=== PATIENT | male | born 1985 | race African-American/Black ===

== ENCOUNTER 2016-09-27 09:00 | Inpatient (IN) | payer MEDICAID ==
[~2016-09-27] VITALS: Ht 180.3 cm; Wt 80.7 kg
--- NOTE | ~2016-09-27 | PN ---
Unit #: [id number] #: [id number] Patient: CALLI ELDRIDGE [id number] [facility] [address] [place] [address] [id number] MR#: [id number] NAME: CALLI ELDRIDGE ROOM: P201 Age: 31 Sex: M Admission Date: 09/27/2016 : 1985 Attending Physician: Bryn Bhatia M.D. Admitting Physician: Bryn Bhatia M.D. Primary Care Physician: Primary Care Physician Tamra GEE PROGRESS NOTES DATE 09/29/2016 DISCUSSION Mr. Obando is a 31-year-old male seen on 09/29/2016. Patient interviewed. Chart reviewed. Obtained information from nursing staff. Patient was compliant, cooperative. Mood sad, dysphoric, flat affect, guarded, withdrawn. Patient denied any side effects from medication. Complete review of system unremarkable. MENTAL STATUS EXAMINATION General appearance, patient dressed casually. Attention span, concentration fair. Oriented in time, place and person. Mood and affect sad, dysphoric. Speech monotone. Thought process concrete. Patient denied any thoughts of harming self or others. Recent and remote memory poor. Insight and judgement poor. DIAGNOSES 1. Major depressive disorder, recurrent, severe. 2. Opiate use disorder, severe. ASSESSMENT/PLAN Advised to continue with current medication and therapeutic protocol. If needed, consider further adjustment of medication. Dictated by... Loretta Ca/pollo TD: 09/29/2016 21:02 JOB #: [id number] Unit #: [id number] #: [id number] Patient: CALLI ELDRIDGE JAYAAMIR PROGRESS NOTES Page 1 of 1 X Bryn Bhatia MD PROGRESS NOTE
--- NOTE | ~2016-09-27 | HP ---
Unit #: [id number] #: [id number] Patient: TOPHER ELDRIDGE [id number] [facility] [address] [place] [address] [id number] MR#: [id number] NAME: TOPHER ELDRIDGE ROOM: P201 Age: 31 Sex: M Admission Date: 09/27/2016 : 1985 Attending Physician: Bryn Bhatia M.D. Admitting Physician: Bryn Bhatia M.D. Primary Care Physician: Primary Care Physician No HISTORY AND PHYSICAL HISTORY OF PRESENT ILLNESS Topher is a 31 year old admitted to [address] [place] [address] because of his poly illicit substance abuse which includes methamphetamine and heroin. PAST MEDICAL HISTORY 1. Long history of illicit substance abuse to include meth and heroin. 2. History of withdrawal seizures. PAST SURGICAL HISTORY Umbilical hernia repair. ALLERGIES No known drug allergies. SOCIAL HISTORY Smokes 1 1/2 pack per day. Drink s alcohol on occasion. Admits to a history of illicit substance abuse to include methamphetamine and heroin. FAMILY HISTORY Medically noncontributory. REVIEW OF SYSTEMS CONSTITUTIONAL: No fever or chills. HEENT: Denies any sore throat, ear pain or runny nose. CARDIOVASCULAR: Denies chest pain, irregular heart rhythm or palpitations. CHEST: Denies shortness of breath or cough. No hemoptysis. GASTROINTESTINAL: Denies nausea, vomiting, diarrhea or chronic constipation. ENDOCRINE: Denies history of increased thirst or urination. No recent significant weight loss or gain. GENITOURINARY: Denies dysuria, frequency, or hematuria. SKIN: He does report multiple abrasions especially to his lower legs and hands after trying to jump a chain link fence. HEMATOLOGIC: Denies history of increased bleeding or bruising. MUSCULOSKELETAL: Denies any hot, swollen joints. No generalized muscle pain. NEUROLOGIC: Denies problems with vision or speech. No frequent, severe headaches. No numbness, tingling or weakness in any extremities. Denies loss of bladder or bowel control. CURRENT MEDICATIONS Detox protocol. Unit #: [id number] #: [id number] Patient: TOPHER ELDRIDGE PHYSICAL EXAMINATION GENERAL: Alert, well-nourished, in no apparent distress. VITAL SIGNS: Blood pressure 130/76, heart rate 64, respirations 16, temperature 98.6. WEIGHT: 178. HEIGHT: 5 foot 11 inches. SKIN: Warm and dry without rash. He has multiple abrasions along both of his lower legs and the palms of his hands. There is no increased redness, swelling, heat or pus noted. HEENT: Normocephalic. TMs not viewed. Oral and nasal passages clear. Conjunctivae clear. Pupils equal, round and reactive to light and accommodation. Extraocular movements intact. NECK: Supple without lymphadenopathy or thyromegaly. HEART: Regular rate and rhythm without murmur. LUNGS: Clear. ABDOMEN: Soft, nontender. : Not done. EXTREMITIES: No evidence of cyanosis, clubbing or edema. Moves all extremities without focal deficit. NEUROLOGICAL: Grossly within normal limits. Cranial Nerves: II: Visual combs are intact. III, IV AND : Extraocular movements are intact. Pupils are equal, round and reactive to light. V: Facial sensation is grossly normal. VII: Facial movements and expression are normal. VIII: Auditory acuity grossly intact. IX, X: Uvula is midline. Phonation is normal. XI: Patient shrugs shoulders and turns head normally. XII: Tongue protrudes in the midline. Sensory and Motor Function: Sensory and motor sensation is grossly normal. Motor: moves all extremities well. Coordination: Gait is normal. Deep Tendon Reflexes: Intact. IMPRESSION 1. Psychiatric admission. 2. Multiple abrasions sustained prior to this admission. RECOMMENDATIONS PSYCHIATRIC: Per psychiatrist. MEDICAL: 1. I see no contraindications to participating in facility's activities. 2. Keep the abrasions clean with soap and water. Apply bacitracin ointment and cover with a clean dressing q day. MEDICAL PROGNOSIS Good. MEDICAL CONDITION Stable. Dictated by... Lina Woo P.A.-C. for Hesham Arambula M.D. Unit #: [id number] #: [id number] Patient: TOPHER ELDRIDGE TRACIE/neva TD: 09/28/2016 01:42 JOB #: [id number] HISTORY AND PHYSICAL Page 1 of 1 X Lina Woo HISTORY AND PHYSICAL
--- NOTE | ~2016-09-27 | DS ---
Unit #: [id number] #: [id number] Patient: CALLI ELDRIDGE [id number] [facility] [address] [place] [address] [id number] MR#: [id number] NAME: CALLI ELRDIDGE ROOM: [facility] Age: 31 Sex: M Admission Date: 09/27/2016 : 1985 Discharge Date: 10/01/2016 Attending Physician: Bryn Bhatia M.D. Primary Care Physician: Primary Care Physician No DISCHARGE SUMMARY REASON FOR ADMISSION Depression. DIAGNOSTIC STUDIES Laboratory data, urine drug screen positive for amphetamine. HOSPITAL COURSE The patient was admitted to the inpatient unit, on September 27 and discharged on 10/01/16. The patient was treated on the inpatient unit, individual therapy, medication management, chemical dependency group, and showed improvement and subsequently was discharged with the plan to followup in outpatient program. DISCHARGE DIAGNOSES PSYCHIATRIC: [place] I Major depressive disorder, recurrent, severe, F33.2. Amphetamine use disorder, severe, F15.20. Opiate use disorder, severe, F18.20. [place] II Deferred. [place] III None. [place] IV Psychosocial stressors. [place] V INSTRUCTIONS TO PATIENT The patient is to followup in outpatient clinic as well as with social media sr strategy manager. DISCHARGE MEDICATIONS Celexa 20 mg at bedtime for depression CONDITION AT DISCHARGE The patient is pleasant, cooperative, denied any psychotic symptoms or any suicidal ideation. PROGNOSIS Guarded. DIET AND ACTIVITY As tolerated. Unit #: [id number] #: [id number] Patient: CALLI ELDRIDGE Dictated by... Loretta Ca/kalani TD: 10/04/2016 06:55 JOB #: [id number] DISCHARGE SUMMARY Page 1 of 1 X Bryn Bhatia MD X DISCHARGE SUMMARY
--- NOTE | ~2016-09-27 | PN ---
Unit #: [id number] #: [id number] Patient: TOPHER ELDRIDGE [id number] [facility] [address] [place] [address] [id number] MR#: [id number] NAME: TOPHER ELDRIDGE ROOM: P201 Age: 31 Sex: M Admission Date: 09/27/2016 : 1985 Attending Physician: Bryn Bhatia M.D. Admitting Physician: Bryn Bhatia M.D. Primary Care Physician: Primary Care Physician Tamra GEE PROGRESS NOTES DATE OF SERVICE 09/28/2016 DISCUSSION Topher is a 31-year-old male. Patient interviewed, chart reviewed. Obtained information from nursing staff. Patient compliant and cooperative. Mood sad, dysphoric, flat affect, guarded, withdrawn, isolative. Complete review of systems unremarkable. MENTAL STATUS EXAMINATION General appearance, patient dressed casually. Attention span and concentration fair. Oriented to place and person. Mood and affect sad, dysphoric. Speech monotone. Thought process concrete. Patient denied any thoughts of harming self or others but still having those thoughts crossing his mind. Recent and remote memory poor. Insight and judgement poor. DIAGNOSES 1. Major depressive disorder recurrent severe. 2. Opiate use disorder severe. ASSESSMENT/PLAN Advise to continue with current medication and therapeutic protocol and start Celexa 20 mg daily. If needed consider further adjustment of medication. Dictated by... Loretta Ca/nvea TD: 09/28/2016 22:47 JOB #: [id number] Unit #: [id number] #: [id number] Patient: TOPHER ELDRIDGE PROGRESS NOTES Page 1 of 1 X Bryn Bhatia MD X PROGRESS NOTE
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
--- NOTE | ~2016-09-27 | PN ---
Unit #: [id number] #: [id number] Patient: TOPHER VILLALBA [id number] [facility] [address] [place] [address] [id number] MR#: [id number] NAME: TOPHER VILLALBA ROOM: [facility] Age: 31 Sex: M Admission Date: 09/27/2016 : 1985 Attending Physician: Bryn Bhatia M.D. Admitting Physician: Bryn Bhatia M.D. Primary Care Physician: Primary Care Physician Tamra GEE PROGRESS NOTES DATE 09/30/2016 DISCUSSION Topher Villalba is a 14-year-old male, seen on 09/30/2016. The patient interviewed, chart reviewed, and obtained information from the nursing staff. The patient was compliant and cooperative. Mood sad and dysphoric, flat affect, and guarded. The patient's vital signs, 98.2, 71, 128/79, making progress. REVIEW OF SYSTEMS Complete review of systems unremarkable. MENTAL STATUS EXAMINATION General appearance: Patient dressed casually. Attention span and concentration, fair. Oriented in time, place, and person. Mood and affect, labile. Speech, monotone. Thought process, concrete. The patient denied any thoughts of harming self or others, seclusive, isolative. Recent and remote memory, poor. Insight and judgment, poor. DIAGNOSES 1. Major depressive disorder, recurrent, severe. 2. Opiate use disorder, severe. ASSESSMENT/PLAN Advised to continue with the current medication and therapeutic protocol, and if needed consider further adjustment of medication. Dictated by... Loretta Ca/kalani TD: 10/01/2016 05:29 JOB #: [id number] Unit #: [id number] #: [id number] Patient: TOPHER VILLALBA PROGRESS NOTES Page 1 of 1 X Bryn Bhatia MD X PROGRESS NOTE
[2016-09-28 09:47] LABS: BILIRUBIN,TOTAL 0.5 mg/dL (0.2-2.0); CALCIUM SERUM 9.3 mg/dL (8.4-10.2); GLOM FILT RATE Estimated 116.5 mL/min (>60); POTASSIUM 4.2 mmol/L (3.5-5.1); PROTEIN TOTAL SERUM 6.7 g/dL (6.0-8.3)
[2016-09-28 10:05] LABS: BASOPHIL% 0.4 % (0-2.5); EOSINOPHIL# 0.5 X10e3 (0-0.7); EOSINOPHIL% 7.1 % (0.0-7.0); HEMATOCRIT 47.2 % (38.0-50.0); HEMOGLOBIN 15.2 gm/dL (13.0-16.0); LYMPHOCYTE# 1.2 X10e3 (1.0-3.5); LYMPHOCYTE% 16.7 % (17.0-45.0); MEAN CORPUSCULAR HEMOGLOBIN 28.4 PG (28-34); MEAN CORPUSCULAR HGB CONC 32.3 g/dL (30-36); MEAN PLATELET VOLUME 11.2 FL (6.5-11.5); MONOCYTE# 0.5 X10e3 (0-1.0); MONOCYTE% 6.9 % (3.0-12.0); NEUTROPHIL# 4.8 X10e3 (1.5-7.1); NEUTROPHIL% 68.9 % (40-75); PLATELET COUNT 199 X10e3 (140-420); RED BLOOD COUNT 5.36 X10e (3.90-5.60); RED CELL DISTRIBUTION WIDTH 13.9 % (11.0-15.5)
[2016-09-28 10:07] LABS: DIFF IND NO
[2016-09-30 12:50] LABS: URINE SOURCE CLEAN CATCH
[2016-09-30 13:01] LABS: URINE APPEARANCE CLOUDY; URINE BILIRUBIN NEG (NEG); URINE BLOOD NEG (NEG); URINE COLOR YELLOW; URINE GLUCOSE NEG (NEG); URINE KETONE TRACE (NEG); URINE LEUKOCYTE ESTERASE NEG (NEG); URINE NITRATE NEG (NEG); URINE PH 6.5 (5-8); URINE PROTEIN NEG (NEG); URINE SPECIFIC GRAVITY 1.026 (1.003-1.035); URINE UROBILINOGEN 0.2 MG/DL (NEG)
[2016-09-30 13:20] LABS: AMPHETAMINE POS (NEG); BARBITURATES NEG (NEG); BENZODIAZEPINES NEG (NEG); COCAINE NEG (NEG); MARIJUANA NEG (NEG); OPIATES NEG (NEG); TRICYCLIC ANTIDEPRESSANTS NEG (NEG); U METHADONE NEG (NEG)
== END 2016-10-01 10:30 | disposition home or self-care (01) | DRG 885 ==
LOC: P2S 11:43 → POF 09-30 22:25 → P2S 09-30 22:29
PROVIDERS: Psychiatry & Neurology Psychiatry
DX: F33.2 Major depressive disorder, recurrent severe without psychotic features (principal); F11.20 Opioid dependence, uncomplicated; R45.851 Suicidal ideations; F17.200 Nicotine dependence, unspecified, uncomplicated; T14.8 Other injury of unspecified body region; X58.XXXD Exposure to other specified factors, subsequent encounter
CPT/HCPCS: 80053; 80307; 81003; 85025